=== PATIENT | female | born 1995 | race Caucasian/White ===

== ENCOUNTER 2021-12-29 15:01 | Emergency (ER) | payer OTHER ==
[~2021-12-29] VITALS: Ht 160 cm; Wt 102.1 kg
[2021-12-29 19:00] VITALS: BP_SYST 137
--- NOTE | 2021-12-29 19:00 | NUR ---
Patient triaged and placed in waiting room. VSS and patient appears in no acute distress at this time. Awaiting for available bed, and MD notified of need for MSE.
--- NOTE | 2021-12-29 19:20 | NUR ---
ER at bedside examining patient.
[2021-12-29] MEDS ORDERED: KETOROLAC TROMETHAMINE 30 MG VIAL IM ONE (19:30)
[2021-12-29] MEDS ORDERED: IBUP-1969 PO (20:04)
--- NOTE | 2021-12-29 21:00 | NUR ---
Body tape right toes and applied post op shoe to right foot.
--- NOTE | 2021-12-29 21:06 | NUR ---
Patient given written and verbal discharge instructions and verbalizes understanding. ER MD discussed with patient the results and treatment provided. Patient in stable condition. ID arm band removed. no Rx of given. Patient educated on pain management and to follow up with PMD. Pain Scale 6/10. Opportunity for questions provided and answered. Medication side effect fact sheet provided.
[2021-12-29 21:09] VITALS: BP_SYST 130
== END 2021-12-29 21:09 | disposition home or self-care (01) ==
LOC: SED 15:01
DX: S92.511A Displaced fracture of proximal phalanx of right lesser toe(s), initial encounter for closed fracture (principal); W22.09XA Striking against other stationary object, initial encounter; Y93.89 Activity, other specified; Y92.89 Other specified places as the place of occurrence of the external cause; Y99.8 Other external cause status
CPT/HCPCS: 99283

== ENCOUNTER 2022-09-07 11:48 | Emergency (ER) | payer OTHER ==
[~2022-09-07] VITALS: Ht 160 cm; Wt 113.4 kg
[~2022-09-07 11:48] MED LIST: IBUP-1969 PO
[2022-09-07 11:57] VITALS: BP_SYST 124
[2022-09-07] MEDS ORDERED: ALBUTEROL SULFATE 0.083% 2.5 MG/3 ML VIAL.NEB INH ONE (12:45)
[2022-09-07] MEDS ORDERED: ALBMDI INH (13:48)
[2022-09-07] MEDS ORDERED: GUAI-723 PO (13:48)
[2022-09-07] MEDS ORDERED: AZIT-93 PO (13:48)
[2022-09-07 14:40] VITALS: BP_SYST 133
== END 2022-09-07 14:40 | disposition home or self-care (01) ==
LOC: SED 11:48
DX: J18.9 Pneumonia, unspecified organism (principal); B34.9 Viral infection, unspecified; R05.9 Cough, unspecified; R50.9 Fever, unspecified; R06.02 Shortness of breath; Z79.899 Other long term (current) drug therapy; Z20.822 Contact with and (suspected) exposure to COVID-19
CPT/HCPCS: 36415; 71045; 94640; 99284; 81025; 87804 ×2; 87426; J7613